=== PATIENT | male | born 1995 | race Caucasian/White ===

== ENCOUNTER 2020-05-27 19:27 | Emergency (ER) | payer SELFPAY ==
[2020-05-27] MEDS ORDERED: cefTRIAXone SODIUM 250 MG in SODIUM CHL 0.9% 50ML MIN-BAG+ 50 ML IVPB ONE (20:01)
[2020-05-27 20:08] VITALS: O2SAT 98
--- NOTE | 2020-05-27 20:11 | ED.PDOC ---
History of Present Illness - General Time Seen by Provider: 05/27/20 20:01 Source: patient Exam Limitations: no limitations - History of Present Illness Initial Comments: PATIENT REPORTS EXPOSURE TO GONORRHEA AND SYMPTOMS OF DYSURIA AND PENILE DISCHARGE X SEVERAL DAYS. DENIES ANY OTHER SYMPTOMS, NO F/C Quality: moderate Onset Location: urethral Radiation: none Activites at Onset: none Prior abdominal problems: none Sexual intercourse history: single partner Improving Factors: nothing Worsening Factors: nothing Associated Symptoms: denies symptoms Allergies/Adverse Reactions: Allergies NO KNOWN ALLERGY Allergy (Verified 05/27/20 20:27) Home Medications: Ambulatory Orders Azithromycin [Zithromax] 1,000 mg PO ONCE #2 tab 05/27/20 Review of Systems - Review of Systems Constitutional: States: no symptoms reported EENTM: States: no symptoms reported Respiratory: States: no symptoms reported Cardiology: States: no symptoms reported Gastrointestinal/Abdominal: States: no symptoms reported Genitourinary: States: see HPI Past Medical History (General) - Vaccination History Hx Tetanus, Diphtheria Vaccination: Yes Hx Influenza Vaccination: No Hx Pneumococcal Vaccination: No Immunizations Up to Date: Yes - Social History Hx Tobacco Use: Yes Years Tobacco Use: 5 Cigarettes Packs Per Day: 1 Hx Chewing Tobacco Use: No Hx Alcohol Use: Yes Hx Substance Use: No Hx Substance Use Treatment: No Hx Depression: No Feels Threatened In Home Enviroment: No Feels Threatened In a Relationship: No Hx Physical Abuse: No Hx Emotional Abuse: No Hx Suspected Abuse: No Family Medical History - Family History Mother Family History: Unknown Physical Exam - Physical Exam General Appearance: Alert, Well Developed, Well Groomed, Well Hydrated, Well Nourished Neck: non-tender, full range of motion Cardiovascular/Respiratory: no respiratory distress Neurologic: alert, normal mood/affect, oriented x 3 Skin Exam: normal color, warm/dry Departure - Departure Clinical Impression: Urethritis Time of Disposition: 21:15 Disposition: Discharge to Home or Self Care Condition: Good Departure Forms: ED Discharge - Pt. Copy, Patient Portal Self Enrollment Instructions: Urethritis, Chlamydia and Gonorrhea Prescriptions: Azithromycin [Zithromax] 1,000 mg PO ONCE #2 tab Home Medications: Ambulatory Orders Azithromycin [Zithromax] 1,000 mg PO ONCE #2 tab 05/27/20
[2020-05-27] MEDS ORDERED: LIDOCAINE 1% 10 ML VIAL INJ ONE (20:43)
[2020-05-27 21:36] VITALS: BP 118/74; TEMP 98.3
== END 2020-05-27 21:05 | disposition home or self-care (01) ==
LOC: ER 19:27
DX: R36.9 Urethral discharge, unspecified (principal); R30.0 Dysuria; Z86.19 Personal history of other infectious and parasitic diseases; Z87.891 Personal history of nicotine dependence
CPT/HCPCS: J0696; J7050